=== PATIENT | male | born 1995 | race Caucasian/White ===

== ENCOUNTER 2017-04-16 21:17 | Emergency (ER) | payer MEDICAID ==
[~2017-04-16] VITALS: Ht 167.6 cm; Wt 73.5 kg
[2017-04-16 21:42] VITALS: Ht 167.6 cm; Wt 73.5 kg
[2017-04-17 03:56] LABS: BASOPHIL % 0.2 % (0-2); PLATELET COUNT 138 x10^3mcL (130-400); RED CELL DISTRIBUTION WIDTH 13.1 % (11.5-14.5)
[2017-04-17 04:02] LABS: CALCIUM 9.8 mg/dL (8.5-10.1); CARBON DIOXIDE 27.3 mmol/L (21-32); CHLORIDE SERUM 98 mmol/L (98-107); CREATININE SERUM 0.9 mg/dL (0.7-1.3); GFR1 > 60 mL/min; GLUCOSE SERUM 114 mg/dL (74-106); POTASSIUM SERUM 3.8 mmol/L (3.5-5.1); SODIUM SERUM 137 mmol/L (136-145)
[2017-04-17 04:07] LABS: ALBUMIN 4.8 g/dL (3.4-5.0); ALKALINE PHOSPHATASE 65 U/L (46-116); ALT/SGPT 15 U/L (16-63); AST/SGOT 14 U/L (15-37); BILIRUBIN TOTAL 0.9 mg/dL (0.20-1.00); CHOLESTEROL 157 mg/dL (<200); MAGNESIUM 2.3 mg/dL (1.8-2.4)
[2017-04-17 04:08] LABS: HDL CHOLESTEROL 93 mg/dL (40-60); TOTAL PROTEIN, SERUM 9.1 g/dL (6.4-8.2)
[2017-04-17 04:34] LABS: AMPHETAMINE QUAL UR NONE DETECTED (NEG <=1000)
[2017-04-17 06:24] VITALS: BP 116/70
== END 2017-04-17 06:24 | disposition home or self-care (01) ==
LOC: ED 21:17
PROVIDERS: Emergency Medicine
DX: S09.8XXA Other specified injuries of head, initial encounter (principal); R55 Syncope and collapse; F12.10 Cannabis abuse, uncomplicated; W18.30XA Fall on same level, unspecified, initial encounter; Y93.01 Activity, walking, marching and hiking; Y99.8 Other external cause status; Y92.89 Other specified places as the place of occurrence of the external cause
CPT/HCPCS: 36415; 83880; 90715